=== PATIENT | female | born 2000 | race Caucasian/White ===

== ENCOUNTER 2023-04-13 04:10 | Emergency (ER) | payer MEDICAID ==
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
[2023-04-13] MEDS ORDERED: HALOPERIDOL 5 MG/ML VIAL IM STA (06:10)
[2023-04-13] MEDS ORDERED: LORazepam 2 MG/ML VIAL IM STA (06:10)
[2023-04-13 07:22] LABS: ALBUMIN 3.7 g/dL (3.2-5.5); ALBUMIN/GLOBULIN RATIO 1.1 (1.0-2.2); ALKALINE PHOSPHATASE 56 IU/L (42-121); ALT ALANINE AMINOTRANSFERASE 47 IU/L (10-60); AST ASPARTATE AMINOTRANSFERASE 29 IU/L (10-42); BILIRUBIN,TOTAL 0.8 mg/dL (0.2-1.0); BUN - BLOOD UREA NITROGEN 10 mg/dL (6-20); CARBON DIOXIDE - CO2 22 mmol/L (21-32); CHLORIDE 106 mmol/L (101-111); CREATININE 0.8 mg/dL (0.4-1.0); ETOH - ETHANOL < 5.0 mg/dL; GFR - MDRD 91 (>89); GLUCOSE 100 mg/dL (70-100); LIPASE 29 U/L (22-51); POTASSIUM 3.3 mmol/L (3.5-5.0); SODIUM 137 mmol/L (135-145); TOTAL PROTEIN 7.2 g/dL (6.7-8.2)
[2023-04-13 07:26] LABS: BASOPHILS % (AUTO) 0.4 %; EOSINOPHILS # (AUTO) 0.1 10^3/uL (0.0-0.7); EOSINOPHILS % (AUTO) 0.7 %; HCT - HEMATOCRIT 36.8 % (37.0-47.0); HGB - HEMOGLOBIN 12.1 g/dL (12.0-16.0); LYMPHOCYTES # (AUTO) 1.8 10^3/uL (1.5-3.5); LYMPHOCYTES % (AUTO) 18.9 %; MEAN CORPUSCULAR HEMOGLOBIN 28.7 pg (27.0-31.0); MEAN CORPUSCULAR HGB CONC 32.9 g/dL (32.0-36.0); MEAN CORPUSCULAR VOLUME 87.2 fL (81.0-99.0); MEAN PLATELET VOLUME 10.9 fL (7.9-10.8); MONOCYTES # (AUTO) 0.7 10^3/uL (0.0-1.0); MONOCYTES % (AUTO) 7.6 %; NEUTROPHILS # (AUTO) 6.9 10^3/uL (1.5-6.6); NEUTROPHILS % (AUTO) 72.1 %; PLT - PLATELET COUNT 220 10^3/uL (130-450); RED BLOOD COUNT 4.22 10^6/uL (4.20-5.40); RED CELL DISTRIBUTION WIDTH 12.7 % (12.0-15.0); WHITE BLOOD COUNT 9.5 x10^3/uL (4.8-10.8)
--- NOTE | 2023-04-13 08:09 | ED Physician Documentation ---
ED Addendum - Addendum Addendum: 04/13/23 08:08 After change of shift, the nurse caring for the patient states the patient is calm and interacting and talking clearly. Following direction. The restraints were removed at this time and we will reassess closely. We will have social work evaluate the patient. Prior provider had also placed a telepsych consult.
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
--- NOTE | 2023-04-13 13:08 | ED Physician Documentation ---
ED Addendum - Addendum Addendum: 04/13/23 13:06 The patient has been sleeping through the morning. Normal vitals and adequate ventilations. The patient does stir slightly with my stimulation but not awake enough to talk to social work. At this point were waiting occasions to wear off and the patient likely had not slept well recently so was tired. As the patient is more conversant and alert, will reassess for concern of potential self-harm etc.
--- NOTE | 2023-04-13 17:06 | ED Physician Documentation ---
ED Addendum - Addendum Addendum: 04/13/23 17:06 Patient seen and examined at the bedside. Now awake alert and cooperative. No SI or HI. She would like to go back to [facility] house and I called [facility] and they said they would not take her back. This was discussed with the patient and at that point she voiced intent to be discharged to go to a different nursing home on the [facility]. I did offer a prescription for Seroquel and clonazepam. This was excepted. We did offer to hospitalize which was declined. No indication at this point for DCR evaluation/TERRIE. Disposition: Discharged home Condition: Stable
[2023-04-13 17:44] VITALS: BP 107/81
== END 2023-04-13 17:30 | disposition home or self-care (01) ==
LOC: ED 04:10
DX: F41.9 Anxiety disorder, unspecified (principal); Z78.1 Physical restraint status
CPT/HCPCS: 36415; 80053; 80320; 83690; 84443; 85025; 87635; 96372; 99284; 99285; J2060

== ENCOUNTER 2024-06-21 10:29 | Outpatient (CLI) | payer MEDICAID | END 2024-06-21 23:59 | disposition critical access hospital (66) | LOC: EMS 10:29 | DX: K92.1 Melena (principal); Z59.00 Homelessness unspecified | CPT/HCPCS: A0425; A0429; A0999 ==

== ENCOUNTER 2024-06-21 10:55 | Emergency (ER) | payer MEDICAID, OTHER ==
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
[2024-06-21 11:31] VITALS: O2SAT 98
[2024-06-21 11:45] LABS: BILIRUBIN,URINE NEGATIVE (NEGATIVE); GLUCOSE, URINE (UA) NEGATIVE (NEGATIVE); KETONES,URINE (UA) NEGATIVE (NEGATIVE); LEUKOCYTE ESTERASE, URINE NEGATIVE (NEGATIVE); NITRITE,URINE NEGATIVE (NEGATIVE); OCCULT BLOOD,URINE NEGATIVE (NEGATIVE); PROTEIN,URINE NEGATIVE (NEGATIVE); UROBILINOGEN,URINE 0.2 (NORMAL) E.U./dL (NORMAL)
[2024-06-21 11:46] LABS: CLARITY,URINE CLEAR (CLEAR)
[2024-06-21 11:53] LABS: BASOPHILS # (AUTO) 0.1 10^3/uL (0.0-0.1); BASOPHILS % (AUTO) 0.8 %; EOSINOPHILS % (AUTO) 0.6 %; HCT - HEMATOCRIT 43.8 % (42.0-52.0); HGB - HEMOGLOBIN 14.6 g/dL (14.0-18.0); LYMPHOCYTES # (AUTO) 1.6 10^3/uL (1.5-3.5); LYMPHOCYTES % (AUTO) 24.8 %; MEAN CORPUSCULAR HEMOGLOBIN 28.9 pg (27.0-31.0); MEAN CORPUSCULAR HGB CONC 33.3 g/dL (32.0-36.0); MEAN CORPUSCULAR VOLUME 86.7 fL (80.0-94.0); MEAN PLATELET VOLUME 12.1 fL (7.4-11.4); MONOCYTES # (AUTO) 0.6 10^3/uL (0.0-1.0); MONOCYTES % (AUTO) 8.6 %; NEUTROPHILS # (AUTO) 4.2 10^3/uL (1.5-6.6); PLT - PLATELET COUNT 185 10^3/uL (130-450); RED BLOOD COUNT 5.05 10^6/uL (4.70-6.10); RED CELL DISTRIBUTION WIDTH 12.5 % (12.0-15.0); WHITE BLOOD COUNT 6.5 x10^3/uL (4.8-10.8)
[2024-06-21 12:06] LABS: ALBUMIN 4.7 g/dL (3.2-5.5); ALBUMIN/GLOBULIN RATIO 1.7 (1.0-2.2); CALCIUM 9.6 mg/dL (8.5-10.3); CREATININE 0.7 mg/dL (0.6-1.3); POTASSIUM 4.1 mmol/L (3.5-4.5); TOTAL PROTEIN 7.5 g/dL (6.4-8.9)
[2024-06-21] MEDS: LIDOCAINE 1% 2 ML VIAL MC ONE (13:57)
[2024-06-21] MEDS: cefTRIAXone 500 MG VIAL IM STA (13:57)
[2024-06-21] MEDS: DOXYCYCLINE 100 MG TABLET PO STA (14:00)
[2024-06-21 17:41] VITALS: BP 157/108
[2024-06-22 06:11] LABS: HBsAG SCREEN Negative (Negative); HCV AB Non Reactive (Non Reactive); HEPATITIS B CORE IGM AB Negative (Negative); HIV SCREEN 4TH GENERATION Non Reactive (Non Reactive); RPR Non Reactive (Non Reactive)
[2024-06-23 00:07] LABS: CHLAMYDIA TRACHOMATIS, NAA Negative (Negative); NEISSERIA GONORRHOEAE, NAA Negative (Negative)
== END 2024-06-21 17:41 | disposition short-term general hospital (02) ==
LOC: EDBD → EDSEX → ED 10:55 → EDSEX 10:55 → MERGE 10:55 → ED 17:41
DX: T76.21XA Adult sexual abuse, suspected, initial encounter (principal); Z20.2 Contact with and (suspected) exposure to infections with a predominantly sexual mode of transmission; Z79.899 Other long term (current) drug therapy
CPT/HCPCS: 36415; 80053; 80074; 81003; 85025; 86592; 87389; 87491; 87591; 96372; 99285; A9270; 81001; 86703; 87086